=== PATIENT | female | born 1995 | race Two or more races ===

== ENCOUNTER 2021-11-26 15:25 | Emergency (ER) | payer OTHER ==
[~2021-11-26] VITALS: Ht 160 cm; Wt 74.8 kg
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
[2021-11-26 16:52] LABS: BILIRUBIN,URINE SMALL (NEGATIVE); COLOR,URINE YELLOW (YELLOW); LEUKOCYTE ESTERASE ,URINE NEGATIVE (NEGATIVE); NITRITE, URINE NEGATIVE (NEGATIVE); PROTEIN,URINE NEGATIVE (NEGATIVE); UGLUCOSE NEGATIVE (NEGATIVE); UROBILINOGEN,URINE 0.2 EU/dL (0.2)
[2021-11-26 16:56] LABS: BACTERIA,URINE Rare /HPF (None Seen); SQUAMOUS EPITHELIAL CELL,UR Few /HPF (None Seen)
--- NOTE | 2021-11-26 18:26 | NUR ---
PELVIC TEDDY DONE AT BEDSIDE.
--- NOTE | 2021-11-26 19:20 | NUR ---
Patient discharged to home in stable condition. Written and verbal after care instructions given. Patient verbalizes understanding of instruction.
[2021-11-26 19:25] VITALS: BP 145/85
== END 2021-11-26 19:20 | disposition home or self-care (01) ==
LOC: ER 15:37
DX: O03.9 Complete or unspecified spontaneous abortion without complication (principal); Z3A.00 Weeks of gestation of pregnancy not specified
CPT/HCPCS: 36415; 76805-TC; 81001; 84702-TC; 84703-TC; 86850-TC

== ENCOUNTER 2022-04-04 17:13 | Emergency (ER) | payer OTHER ==
[~2022-04-04] VITALS: Ht 162.6 cm; Wt 74.8 kg
[2022-04-04 17:47] VITALS: BP 158/79
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
--- NOTE | 2022-04-04 21:11 | NUR ---
Patient discharged to home in stable condition. Written and verbal after care instructions given. Patient verbalizes understanding of instruction. SPLINT APPLIED TO L HAND
== END 2022-04-04 21:12 | disposition home or self-care (01) ==
LOC: ER 17:15
DX: O26.899 Other specified pregnancy related conditions, unspecified trimester (principal); S62.307A Unspecified fracture of fifth metacarpal bone, left hand, initial encounter for closed fracture; Z3A.00 Weeks of gestation of pregnancy not specified; W22.8XXA Striking against or struck by other objects, initial encounter; Y93.89 Activity, other specified; Y92.89 Other specified places as the place of occurrence of the external cause; Y99.8 Other external cause status
CPT/HCPCS: 73130-TC; 84703-TC